=== PATIENT | female | born 1935 | race Caucasian/White ===

== ENCOUNTER 2016-12-14 05:59 | Day surgery (SDC) | payer OTHER ==
--- NOTE | 2016-12-01 14:37 | HP ---
DATE OF ADMISSION: 12/07/2016 DATE OF DICTATION: 11/01/2016 Patient to be admitted through the [facility] for surgery in the near future, ambulatory. HISTORY: An 81-year-old woman admitted through the ambulatory surgical service at [facility] for repair of rather longstanding symptomatic reducible right inguinal hernia. According to the patient, she has had the hernia for several years. It has become progressively larger in size and associated with some discomfort. No underlying GI, , or respiratory complaints that suggest predisposition to hernia formation. Patient's past medical history is significant for hypertension, ovarian cancer, and underlying anxiety/depressive disorder. Past surgical history is significant for hysterectomy 20 years ago for ovarian cancer. ALLERGIES: None known. REGULAR MEDICATIONS: Antihypertensives and Xanax. SOCIAL HISTORY: Negative for tobacco, negative alcohol. FAMILY HISTORY: Nil. REVIEW OF SYSTEMS: Nil. PHYSICAL EXAMINATION: Patient examined in erect, supine position. There is a moderate to large size reducible right inguinal hernia. The left groin is intact. The abdomen is soft. The midline scar is clean and without evidence of herniation. IMPRESSION: Reducible symptomatic right inguinal hernia. PLAN: Open right inguinal hernia repair with or without mesh. Indications, alternatives, possible complications reviewed. Patient was seen preoperatively by Dr. Ryan Carrillo, her PMD. Please refer to those notes for those medical details. RASHAWN BRYAN M.D. [id number] Cc: Ryan Carrillo MD, [facility] [place] [place] [address]
[2016-12-08 09:13] VITALS: BMI 22.3
[2016-12-14] MEDS ORDERED: BUPIVACAINE HCL/PF 0.5% (5MG/ML) 10 ML VIAL ONE (07:13)
[2016-12-14] MEDS ORDERED: MIDAZOLAM HCL 2 MG/2 ML SINGLE DOSE VIAL ONE (08:08)
[2016-12-14] MEDS ORDERED: PROPOFOL 20 ML ONE (08:08)
[2016-12-14] MEDS ORDERED: LIDOCAINE HCL/PF 2% SDV 5ML VIAL ONE (08:08)
[2016-12-14] MEDS ORDERED: ROCURONIUM BROMIDE 50 MG/5 ML VIAL ONE (08:30)
[2016-12-14] MEDS ORDERED: ONDANSETRON 4 MG/2 ML VIAL ONE (08:42)
[2016-12-14] MEDS ORDERED: DEXAMETHASONE SOD PHOSPHATE 4 MG/1 ML VIAL ONE (08:42)
[2016-12-14] MEDS ORDERED: GLYCOPYRROLATE 0.2 MG/1 ML VIAL ONE ×3 (08:45)
[2016-12-14] MEDS ORDERED: NEOSTIGMINE METHYLSULFATE 0.5 MG/ML - 10 ML MDV ONE (08:45)
[2016-12-14] MEDS ORDERED: DESFLURANE GAS 240 ML BOTTLE IH ONE (09:25)
[2016-12-14] MEDS ORDERED: oxyCODONE HCL 5 MG TABLET PO PRN ×2 (10:08)
[2016-12-14] MEDS ORDERED: ONDANSETRON 4 MG/2 ML VIAL IVPUSH PRN (10:08)
--- NOTE | 2016-12-14 11:02 | OP ---
DATE OF OPERATION: 12/14/2016 PREOPERATIVE DIAGNOSIS: Right inguinal hernia. POSTOPERATIVE DIAGNOSIS: Indirect right inguinal hernia. PROCEDURE: Right inguinal hernia repair with mesh/intermediate wound closure ( 8 cm). OPERATING SURGEON: Jkaob De Paz MD INDUSTRIAL ENGINEERING ANALYST: Nils Nugent MD ANESTHESIA: Rohan Miller MD (general) HISTORY: This is an 81-year-old woman who presents with a large reducible symptomatic right inguinal hernia. Patient was found to have significant attenuation of the musculature at the time of surgery. Indications, alternatives, and possible complications were reviewed. Consent obtained. DESCRIPTION OF PROCEDURE: With the patient in the supine position and after general anesthesia, the right groin was prepped and draped in sterile fashion using chlorhexidine. An 8-cm right groin incision was made between the right pubic tubercle and the right anterior iliac spine. The incision was deepened into the subcutaneous space. All identified vessels in the subcutaneous space were clamped, divided, and ligated. The external oblique aponeurosis was opened in the direction of its fibers through the external ring. The ilioinguinal nerve was identified and spared. The undersurface was split, external oblique aponeurosis points at the level of the pubic tubercle. The undersurface of the split external oblique aponeurosis was then swept clean to the level of the pubic tubercle. At the pubic tubercle, a Dolly drain was placed around the cord structures. At the pubic tubercle, the remnant of the round ligament was disconnected. The remnant and the large indirect sac were then swept superiorly. The sac was freed from its attachment to the round ligament and mobilized to the level of the preperitoneal fat and inferior gastric vessels. The sac was opened , found to contain no structures. The sac was transfixed at its base with 2-0 silk suture x2. It was amputated, sent as specimen, labeled as right inguinal hernia sac. The remnant of the round ligament was also divided at the internal ring and delivered as specimen labeled remnant of round ligament. The transversalis fascia of the groin was of very poor integrity. It was split throughout its entire length. The preperitoneal tissues were further reduced. Given the poor integrity of the tissues, a Davol plug was placed in the preperitoneal space and fanned out under the musculature. It was tacked circumferentially with interrupted 2-0 Prolene sutures. The attenuated transversalis fascia was then imbricated in 2 layers over the Davol plug, closing the internal ring entirely. An overlay patch was then fashioned about the entire inguinal floor and tacked in place circumferentially with 2-0 Prolene sutures, as well. The nerve was then returned to its anatomic position. The overlying external oblique aponeurosis was closed in a continuous fashion using 3-0 Vicryl suture material. Klaudia's fascia was approximated with 3-0 chromic suture. Subcuticular layer was approximated with 4-0 Biosyn suture. Prior to complete closure, 10 mL of 0.5% Marcaine was freely instilled in the wound. Dermabond applied. Dressings applied. Procedure was terminated. NEEDLE AND INSTRUMENT COUNT: Correct. ESTIMATED BLOOD LOSS: Minimal. SPECIMENS: Included round ligament, remnant of round ligament, and hernia sac. DRAINS: None. IMPLANTS: A mesh patch. Patient tolerated the procedure. The procedure was terminated. Tim [id number] MTDD
[2016-12-14 12:56] VITALS: TEMP 98
[2016-12-14] MEDS ORDERED: ACETAMINOPHEN 325 MG TABLET (FP) PO ONE (14:00)
[2016-12-14 15:58] VITALS: BP 156/62; PULSE 68
--- NOTE | 2016-12-19 13:53 | PATH ---
Surgical Pathology Report Patient Name: JESIKA MARKS [facility]. Rec. #: [id number] /Age/Gender: 1935 (Age: 81) / F Account: [id number] Location: [facility] Taken: 12/14/2016 Received: 12/14/2016 Reported: 12/19/2016 Physicians: Jakob De Paz M.D. Specimen(s) Received A: RIGHT INGUINAL HERNIA SAC B: REMNANT OF ROUND LIGAMENT Clinical History Unilateral inguinal hernia Final Diagnosis A. INGUINAL HERNIA SAC, RIGHT, REPAIR: HERNIA SAC. B. REMANENT OF ROUND LIGAMENT, EXCISION: FIBROCOLLAGENOUS TISSUE AND SKELETAL MUSCLE. Electronically Signed Alpa Pereira M.D. Gross Description A. Received in formalin labeled "right inguinal hernia sac," is a 4.5 x 1.6 x 0.8 cm newman-yee, irregular portion of fibromembranous tissue with minimal attached fat. No areas of hemorrhage or necrosis are identified. Cotton Weigher sections are submitted in one cassette. B. Received in formalin labeled "remnant of round ligament," is a 4.5 x 0.7 x 0.5 cm newman yee, irregular portion of fibrous tissue with minimal attached fat. Cotton Weigher sections are submitted in one cassette. /12/14/201612/14/2016
== END 2016-12-14 15:45 | disposition home or self-care (01) ==
LOC: FASU 05:59
PROVIDERS: ATTEND Surgery
PROC: 0YU50JZ Supplement Right Inguinal Region with Synthetic Substitute, Open Approach (ICD-10-PCS; principal; 2016-12-14 08:44)
DX: K40.90 Unilateral inguinal hernia, without obstruction or gangrene, not specified as recurrent (principal); I10 Essential (primary) hypertension; Z85.43 Personal history of malignant neoplasm of ovary; F41.8 Other specified anxiety disorders
CPT/HCPCS: 88302-TC; 88304-TC; 94760